=== PATIENT | female | born 1940 | race Caucasian/White ===

== ENCOUNTER → 2016-12-08 | Outpatient (CLI) | payer OTHER ==
[~2016-12-08] MED LIST: ACETAMINOPHEN650 M5 PO; ACTIGALL300 MG PO; ADULT LOW DOSE81 MG PO; ALDACTONE25 MG PO; AMARYL1 MG PO; ATORVASTATIN CA40 MG PO; BACTRIM DS TAB1 EACH PO; BENICAR HCT 201 EACH PO; BENICAR20 MG PO; BIOTIN1 MG PO; BYSTOLIC 5 MG5 M1 PO; CALCIUM 600 +1 EAC1 PO; CELEBREX 200 M200 MG PO; CIPROFLOXACIN500 M3 PO; CLONAZEPAM 0.50.5 M1 PO; CLONAZEPAM 1 MG1 M1 PO; CYMBALTA60 MG PO; FENTANYL PA12 MCG/H1 TP; FENTANYL PA12 MCG/HR TP; FISHOIL; FLOMAX PO; GLUCOPHAGE500 MG PO; HYDROCODON-ACE1 EAC7 PO; HYDROCODONE-AP1 EAC6 PO; LASIX 40 MG TAB40 MG PO; LISINOPRIL2.5 MG PO; MACROBID 100 M100 M1 PO; MECLIZINE HCL12.5 MG PO; MELOXICAM7.5 MG PO; MINIPRIN81 MG PO; MIRALAX255 GM; MOBIC7.5 MG PO; MORPHINE SULFAT15 M1 PO; MS CONTIN15 MG PO; NABUMETONE 500500 M1 PO; NEURONTIN 300300 M1 PO; NEXIUM40 MG PO; NORCO 5-325 TA1 EACH PO; OMEPRAZOLE20 M2 PO; OXYCONTIN15 MG PO; POTASSIUM CHLO10 ME1 PO; POTASSIUM20 PO; PRAVACHOL40 MG PO; PREDNISONE PO; ROXICODONE5 M1 PO; ROXICODONE5 MG PO; SIMVASTATIN80 MG PO; SLOW REL IRON160 M1 PO; SPIRONOLACTONE25 M1 PO; TAMSULOSIN HCL0.4 MG PO; TRAMADOL 50 MG50 MG PO; TYLENOL EX-STR500 M2 PO; VITAMIN C100 M1 PO; VITAMIN D1000 UNI1 PO; ZOFRAN4 MG PO; ZOLOFT 50 MG TA50 M1 PO
== END ==
LOC: RAD 11:25
DX: J20.0 Acute bronchitis due to Mycoplasma pneumoniae (principal)

== ENCOUNTER → 2017-10-23 | Outpatient (CLI) | payer OTHER | LOC: RAD 00:26 | DX: Z12.31 Encounter for screening mammogram for malignant neoplasm of breast (principal) ==

== ENCOUNTER → 2018-10-29 | Outpatient (CLI) | payer OTHER | LOC: RAD 01:41 | DX: Z12.31 Encounter for screening mammogram for malignant neoplasm of breast (principal); Z85.3 Personal history of malignant neoplasm of breast; Z90.12 Acquired absence of left breast and nipple ==

== ENCOUNTER → 2018-11-05 | Outpatient (CLI) | payer OTHER | LOC: ULTRA 13:00 | DX: N60.01 Solitary cyst of right breast (principal) ==

== ENCOUNTER → 2019-12-18 | Outpatient (CLI) | payer OTHER | LOC: RAD 13:11 | DX: Z12.31 Encounter for screening mammogram for malignant neoplasm of breast (principal) ==

== ENCOUNTER → 2020-12-18 | Outpatient (CLI) | payer OTHER | LOC: BC 09:25 | PROVIDERS: ATTEND Internal Medicine | DX: Z12.31 Encounter for screening mammogram for malignant neoplasm of breast (principal) ==